=== PATIENT | male | born 1995 | race Hispanic/Latino ===

== ENCOUNTER 2017-08-22 18:26 | Observation (INO) | payer BC ==
[2017-08-22 18:33] VITALS: BP 129/69; PULSE 77; RESP 16; TEMP 98; O2SAT 100
--- NOTE | 2017-08-22 18:33 | ED PDOC ---
HPI: General Adult Time Seen by Provider: 08/22/17 18:30 Chief Complaint (Nursing): Abnormal Skin Integrity Chief Complaint (Provider): head injury History Per: Patient Additional Complaint(s): 22-year-old male with no past medical history presents to emergency department for evaluation of acute alcohol intoxication and head injury. Patient was noted by a bystander to be outside of a bar vomiting. Bystander contacted police and patient was brought here via ambulance. The patient admits to drinking today but denies any drug use. He is actively vomiting upon arrival. Past Medical History Reviewed: Historical Data, Nursing Documentation, Vital Signs Vital Signs: Last Vital Signs Temp 98.0 F 08/22/17 18:31 Pulse 77 08/22/17 18:31 Resp 16 08/22/17 18:31 BP 129/69 08/22/17 18:31 Pulse Ox 100 08/22/17 18:56 - Medical History PMH: No Chronic Diseases - Surgical History Other surgeries: surgical repair of twist omentum - Family History Family History: States: No Known Family Hx - Living Arrangements Living Arrangements: With Family - Social History Current smoker - smoking cessation education provided: No Alcohol: Social Drugs: Denies - Immunization History Hx Tetanus Toxoid Vaccination: Yes - Allergies Allergies/Adverse Reactions: Allergies Allergy/AdvReac Type Severity Reaction Status Date / Time No Known Allergies Allergy Verified 08/22/17 18:30 Review of Systems ROS Statement: Except As Marked, All Systems Reviewed And Found Negative Neurological: Positive for: Other (head injury, unknown LOC) Psych: Positive for: Other (etoh) Physical Exam - Reviewed Nursing Documentation Reviewed: Yes Vital Signs Reviewed: Yes - Physical Exam Appears: Positive for: Well, Non-toxic, No Acute Distress Head Exam: Negative for: ATRAUMATIC (2 cm V shaped laceration noted to anterior scalp, slight active bleeding, surrounding STS noted, head is otherwise atraumatic and normocephalic) Skin: Negative for: Rash Eye Exam: Positive for: Normal appearance, EOMI, PERRL Neck: Positive for: Normal Cardiovascular/Chest: Positive for: Regular Rate, Rhythm Respiratory: Positive for: Normal Breath Sounds Neurologic/Psych: Positive for: Alert, Other (intoxicated, answers some questions appropriately) - Laboratory Results Result Diagrams: 08/22/17 19:05 08/22/17 19:05 - ECG O2 Sat by Pulse Oximetry: 100 Pulse Ox Interpretation: Normal Medical Decision Making Medical Decision Makin22 year old intoxicated male with head injury Plan: CT head CBC CMP BAL IVF IV zofran Admit to ED observation Procedures - Laceration/Wound Repair scalp Wound Length (cm): 2 Wound's Depth, Shape: superficial Wound Explored: clean Betadine Prep?: Yes Wound Repaired With: Jessika (2) Layer Closure?: No Wound Complexity: Simple Sterile Dressing Applied?: No Splint Applied?: No ED OBSERVATION Date of observation admission: 08/22/17 Time of observation admission: 18:55 - Observation admission statement Patient is being placed in observation because:: Acute etoh intoxication, head injury - Goals of Observation Goals of observation are:: Monitor patient while acutely intoxicated, pending sobriety and diagnostic testing results - Progress Note Progress Note: 08/22/17 19:44 CT completed, patient is asleep in stretcher, vital signs stable, will continue to monitor patient Disposition - Clinical Impression Clinical Impression: Alcohol intoxication, Scalp laceration, Head injury - Patient ED Disposition Is Patient to be Admitted: Transfer of Care - Disposition Disposition: Transfer of Care Disposition Time: 19:47 Condition: FAIR Forms: Access Media 3 (Burkinan) Patient Signed Over To: Chana Ramires Handoff Comments: Case was signed out to AMARI Ramires pending CT report, sobriety and final disposition Results - Lab Results Lab Results: 08/22/17 08/22/17 19:05 19:05 WBC 8.3 RBC 5.85 Hgb 16.1 Hct 47.5 MCV 81.3 MCH 27.5 MCHC 33.9 RDW 13.5 Plt Count 306 Sodium 148 Potassium 3.4 L Chloride 109 H Carbon Dioxide 21 L Anion Gap 21 H BUN 12 Creatinine 1.0 Est GFR ( Amer) > 60 Est GFR (Non-Af Amer) > 60 Random Glucose 118 H Calcium 9.6 Total Bilirubin 0.4 AST 33 ALT 44 Alkaline Phosphatase 67 Total Protein 8.5 H Albumin 5.3 H Globulin 3.3 Albumin/Globulin Ratio 1.6 Alcohol, Quantitative 260 H
[2017-08-22] MEDS ORDERED: Sodium Chloride 0.9% 1,000 ML IV STA ×2 (18:45→19:44)
[2017-08-22 19:10] LABS: HEMATOCRIT 47.5 % (35.0-51.0); MEAN CELL VOLUME 81.3 fl (80.0-94.0); MEAN CORPUSCULAR HEMOGLOBIN 27.5 pg (27.0-31.0); MEAN CORPUSCULAR HGB CONC 33.9 g/dL (33.0-37.0); RED CELL DISTRIBUTION WIDTH 13.5 % (11.5-14.5); WHITE BLOOD COUNT 8.3 K/uL (4.8-10.8)
[2017-08-22 19:20] LABS: ALB/GLOB RATIO 1.6 (1.0-2.1); ALCOHOL SERUM 260 mg/dl (0-10); ALKALINE PHOSPHATASE 67 U/L (38-126); ALT/SGPT 44 U/L (21-72); AST/SGOT 33 U/L (17-59); BILIRUBIN,TOTAL 0.4 mg/dl (0.2-1.3); BLOOD UREA NITROGEN 12 mg/dl (9-20); CALCIUM 9.6 mg/dL (8.4-10.2); CARBON DIOXIDE 21 mmol/L (22-30); CHLORIDE 109 mmol/L (98-107); GFR AFRICAN-AMERICAN > 60; GLUCOSE,RANDOM 118 mg/dL (75-110); POTASSIUM 3.4 MMOL/L (3.6-5.0); SODIUM 148 mmol/l (132-148); TOTAL PROTEIN 8.5 G/DL (6.3-8.2)
--- NOTE | 2017-08-22 20:18 | ED PDOC ---
- Laboratory Results Result Diagrams: 08/22/17 19:05 08/22/17 19:05 - ECG O2 Sat by Pulse Oximetry: 100 Medical Decision Making Medical Decision Making: Case endorsed to scientific technical writer from [employer] [facility] at 1999 pending clinical sobriety Caretakers at bedside, Pt asleep upon initial eval. Arousable to tactile stimuli. 2200- Pt ambulating to restroom with steady gait. Speaking in clear and full sentences. Stable for discharge home with caretakers. Disposition - Clinical Impression Clinical Impression: Alcohol intoxication, Scalp laceration, Head injury - POA Present On Arrival: None - Disposition Disposition: Routine/Home Disposition Time: 22:20 Condition: FAIR
--- NOTE | 2017-08-23 06:57 | CT ---
PROCEDURE: CT HEAD WITHOUT CONTRAST. HISTORY: trauma COMPARISON: None available. TECHNIQUE: Axial computed tomography images were obtained through the head/brain without intravenous contrast. Radiation dose: Total exam DLP = poole 872.92 mGy-cm. This CT exam was performed using one or more of the following dose reduction techniques: Automated exposure control, adjustment of the mA and/or kV according to patient size, and/or use of iterative reconstruction technique. FINDINGS: HEMORRHAGE: No intracranial hemorrhage. BRAIN: No mass effect or edema. No atrophy or chronic microvascular ischemic changes. VENTRICLES: Unremarkable. No hydrocephalus. CALVARIUM: Unremarkable. PARANASAL SINUSES: Unremarkable as visualized. No significant inflammatory changes. MASTOID AIR CELLS: Unremarkable as visualized. No inflammatory changes. OTHER FINDINGS: Left parietal scalp contusion in surgical jessica noted IMPRESSION: No acute intracranial abnormalities. No significant findings to account for the clinical presentation. Concordant results (preliminary interpretation) provided by [employer]. Procedure Completed: 19:21 Preliminary ([facility]) Report: Dictated and Authenticated: 20:32. Final Interpretation: 06:55. August 23, 2017.
== END 2017-08-22 22:45 | disposition home or self-care (01) ==
LOC: H.ER 18:26 → H.EROBSV 18:55
PROVIDERS: ADMIT Emergency Medicine; ATTEND Emergency Medicine
DX: F10.129 Alcohol abuse with intoxication, unspecified (principal); Y90.8 Blood alcohol level of 240 mg/100 ml or more; S01.01XA Laceration without foreign body of scalp, initial encounter; Y33.XXXA Other specified events, undetermined intent, initial encounter; Y93.9 Activity, unspecified; Y92.480 Sidewalk as the place of occurrence of the external cause
CPT/HCPCS: 12001; 70450; 80053; 85027; 96360; 99284; G0378; G0480; J2405; J7040